=== PATIENT | male | born 1985 | race Caucasian/White ===

== ENCOUNTER 2017-01-16 03:56 | Emergency (ER) | payer BC ==
[~2017-01-16] VITALS: Ht 177.8 cm; Wt 88.6 kg
[2017-01-16 04:24] VITALS: TEMP 104.2
[2017-01-16 04:24] LABS: BASO % 0.3 % (0.0-2.0); EOS % 0.1 % (0-4.0); GRAN # 6.6 (1.4-6.5); GRAN % 92.4 % (42.2-75.2); HEMATOCRIT 38.9 % (42.0-52.0); HEMOGLOBIN 14.2 g/dl (13.5-18.0); LYMPH # 0.4 (1.2-3.4); LYMPH % 5.9 % (20.0-51.0); MEAN CELL VOLUME 83 fl (80.0-100.0); MEAN CORPUSCULAR HEMOGLOBIN 30 pg (27.0-31.0); MEAN CORPUSCULAR HGB CONC 37 g/dl (33.0-37.0); MEAN PLATELET VOLUME 9.1 fl (7.4-10.4); MONO # 0.1 (0.1-0.6); PLATELET COUNT 220 K/mm3 (130-400); RED BLOOD COUNT 4.68 M/mm3 (4.20-5.60); REDCELL DISTRIBUTION WIDTH-CV 11.9 % (11.5-14.5); WHITE BLOOD COUNT 7.1 K/mm3 (4.8-10.8)
[2017-01-16 04:34] LABS: ADJUSTED CALCIUM 8.7 mg/dL (8.4-10.2); ALBUMIN 4.5 gm/dL (3.5-5.0); BILIRUBIN,TOTAL 1.5 mg/dL (0.0-1.0); CALCIUM 9.1 mg/dL (8.4-10.2); CREATININE, serum 0.96 mg/dL (0.66-1.25); POTASSIUM 3.6 mmol/L (3.4-5.0); TOTAL PROTEIN 7.4 gm/dL (6.4-8.2)
[2017-01-16] MEDS ORDERED: ULTRAM 50MG TAB50 MG PO (04:59)
[2017-01-16] MEDS ORDERED: ZOFRAN8 MG PO (04:59)
[2017-01-16 06:17] LABS: PH 5 (5-8); SQUAMOUS EPITHELIAL 0-2 /hpf; URINE APPEARANCE Hazy; URINE BACTERIA None Seen /hpf; URINE BILIRUBIN Negative (NEGATIVE); URINE BLOOD 1+ (NEGATIVE); URINE COLOR Yellow; URINE GLUCOSE Negative (NEGATIVE); URINE KETONE Negative (NEGATIVE); URINE UROBILINOGEN Negative (NEGATIVE)
[2017-01-16] MEDS ORDERED: PREDNISONE20 MG PO (06:37)
[2017-01-16 06:46] VITALS: BP 106/86; PULSE 98
[2017-02-22] MEDS ORDERED: FLAGYL500 MG PO (10:55)
[2017-02-22] MEDS ORDERED: LEVAQUIN 5500 MG/TA1 PO (10:56)
[2017-02-22] MEDS ORDERED: AZULFIDINE ENT500 MG PO (10:57)
== END 2017-01-16 07:05 | disposition home or self-care (01) ==
LOC: COL.ER 03:56
PROVIDERS: Emergency Medicine
DX: R10.31 Right lower quadrant pain (principal); R10.32 Left lower quadrant pain; R11.2 Nausea with vomiting, unspecified; R19.7 Diarrhea, unspecified; K50.90 Crohn's disease, unspecified, without complications; R00.0 Tachycardia, unspecified
CPT/HCPCS: J1170; J1885; J2405; J2930; J7030

== ENCOUNTER → 2017-02-22 | Outpatient (CLI) | payer BC ==
[~2017-02-22] VITALS: Ht 177.8 cm; Wt 84.1 kg
[~2017-02-22] MED LIST: AZULFIDINE ENT500 MG PO; FLAGYL500 MG PO; LEVAQUIN 5500 MG/TA1 PO; PREDNISONE20 MG PO; ULTRAM 50MG TAB50 MG PO; ZOFRAN8 MG PO
[2017-02-22 13:20] VITALS: BP 113/93; PULSE 94
== END ==
LOC: COL.RAD 12:48
DX: K50.014 Crohn's disease of small intestine with abscess (principal)
CPT/HCPCS: Q9967

== ENCOUNTER → 2017-08-06 | Outpatient (CLI) | payer BC | LOC: BHSO 14:41 | DX: F90.0 Attention-deficit hyperactivity disorder, predominantly inattentive type (principal) | CPT/HCPCS: 90791-AI ==

== ENCOUNTER → 2017-09-06 | Outpatient (CLI) | payer BC | LOC: BHSO 15:35 | DX: F90.0 Attention-deficit hyperactivity disorder, predominantly inattentive type (principal) ==

== ENCOUNTER → 2017-10-30 | Outpatient (CLI) | payer BC | LOC: BHSO 08:23 | DX: F90.0 Attention-deficit hyperactivity disorder, predominantly inattentive type (principal) | CPT/HCPCS: G0463 ==

== ENCOUNTER → 2018-01-23 | Outpatient (CLI) | payer BC | LOC: BHSO 08:26 | DX: F90.0 Attention-deficit hyperactivity disorder, predominantly inattentive type (principal) | CPT/HCPCS: G0463 ==

== ENCOUNTER 2018-03-11 14:41 | Day surgery (SDC) | payer OTHER ==
[~2018-03-11] VITALS: Ht 177.8 cm; Wt 91.5 kg
[2018-03-11 14:58] VITALS: BP 115/73; PULSE 89; TEMP 97.8
[2018-03-11] MEDS ORDERED: HUMIRA40 MG/0.8 SQ (15:01)
[2018-03-11] MEDS ORDERED: APRISO0.375 GM PO (15:02)
[2018-03-11] MEDS ORDERED: WELLBUTRIN PO (15:02)
[2018-03-11] MEDS ORDERED: PREDNISONE 5MG5 MG PO (15:03)
[2018-03-11 16:25] VITALS: BP 114/73; PULSE 98; TEMP 97.6
[2018-03-11 16:30] VITALS: BP 115/81; PULSE 104
[2018-03-11 16:40] VITALS: BP 98/62; PULSE 91
[2018-03-11 16:55] VITALS: BP 97/53; PULSE 83
[2018-03-11 17:22] VITALS: BP 95/51; PULSE 102
== END 2018-03-11 17:12 | disposition home or self-care (01) ==
LOC: SDCO 14:41
DX: K50.912 Crohn's disease, unspecified, with intestinal obstruction (principal); Z79.899 Other long term (current) drug therapy
CPT/HCPCS: J2250; J2405; J3010; J7030

== ENCOUNTER → 2018-03-27 | Outpatient (CLI) | payer OTHER ==
[~2018-03-27] MED LIST changes: +APRISO0.375 GM PO; +HUMIRA40 MG/0.8 SQ; +PREDNISONE 5MG5 MG PO; +WELLBUTRIN PO
== END ==
LOC: COL.RAD 03-21 14:00
DX: K50.90 Crohn's disease, unspecified, without complications (principal); K59.00 Constipation, unspecified

== ENCOUNTER 2018-03-29 09:33 | Inpatient (IN) | payer OTHER ==
[~2018-03-29] VITALS: Ht 177.8 cm; Wt 93.0 kg
[2018-05-22] VITALS (12 sets, daily range): BP systolic 99–123; BP diastolic 60–78; PULSE 74–98; TEMP 97.5–98.2
[2018-05-22] MEDS ORDERED: WELLBUTRIN XL150 MG PO (06:17)
[2018-05-22] MEDS ORDERED: NEOMYCIN S500 MG/TAB PO (06:19)
[2018-05-22] MEDS ORDERED: FLAGYL500 MG PO (06:20)
[2018-05-23 04:16] VITALS: BP 110/57; PULSE 100; TEMP 98.5
[2018-05-23 06:25] LABS: HEMOGLOBIN 10.2 g/dl (13.5-18.0)
[2018-05-23 06:44] LABS: CALCIUM 8.6 mg/dL (8.4-10.2); CREATININE, serum 1.08 mg/dL (0.66-1.25); MAGNESIUM 1.8 mg/dL (1.6-2.3); PHOSPHOROUS 4.1 mg/dL (2.5-4.5); POTASSIUM 4.2 mmol/L (3.4-5.0)
[2018-05-23 07:34] VITALS: BP 131/77; PULSE 73; TEMP 98.5
[2018-05-23 11:55] VITALS: BP 117/65; PULSE 82; TEMP 98.9
[2018-05-23 16:37] VITALS: BP 122/72; PULSE 87; TEMP 98.5
[2018-05-23 19:36] VITALS: BP 123/73; PULSE 86; TEMP 98.2
[2018-05-24 04:10] VITALS: BP 115/71; PULSE 83; TEMP 98.2
[2018-05-24 06:18] LABS: HEMATOCRIT 29.8 % (42.0-52.0); HEMOGLOBIN 9.6 g/dl (13.5-18.0)
[2018-05-24 08:00] VITALS: BP 120/85; PULSE 84; TEMP 97.9
[2018-05-24] MEDS ORDERED: ROXICODONE 55 MG/TAB PO (09:43)
== END 2018-05-24 10:25 | disposition home or self-care (01) | DRG 330 ==
LOC: SURG 05-22 05:36 → INPTSU 05-22 05:36 → SURG 05-22 07:30
PROVIDERS: Surgery
PROC: 8E0W4CZ Robotic Assisted Procedure of Trunk Region, Percutaneous Endoscopic Approach (ICD-10-PCS; 2018-05-22)
PROC: 0DTH4ZZ Resection of Cecum, Percutaneous Endoscopic Approach (ICD-10-PCS; principal; 2018-05-22 07:30)
DX: K50.012 Crohn's disease of small intestine with intestinal obstruction (principal); D64.9 Anemia, unspecified
CPT/HCPCS: A4314; A9284; J0690; J1650; J1885; J2001; J2250; J2405; J2550; J2704; J2710; J3010; J7040; J7120

== ENCOUNTER → 2018-11-14 | Outpatient (CLI) | payer OTHER ==
[~2018-11-14] MED LIST changes: +NEOMYCIN S500 MG/TAB PO; +ROXICODONE 55 MG/TAB PO; +WELLBUTRIN XL150 MG PO
== END ==
LOC: BHSO 08:04
DX: F90.0 Attention-deficit hyperactivity disorder, predominantly inattentive type (principal)
CPT/HCPCS: G0463